=== PATIENT | female | born 1995 | race Caucasian/White ===

== ENCOUNTER 2017-06-19 08:35 | Emergency (ER) | payer MEDICAID ==
[2017-06-19] MEDS: IBUPROFEN 600 MG TAB PO (10:06)
== END 2017-06-19 11:40 | disposition home or self-care (01) ==
LOC: E/R 08:35
DX: S09.8XXA Other specified injuries of head, initial encounter (principal); S01.511A Laceration without foreign body of lip, initial encounter; Y08.89XA Assault by other specified means, initial encounter
CPT/HCPCS: 99283; Z7502

== ENCOUNTER 2017-07-01 20:48 | Emergency (ER) | payer SELFPAY, MEDICAID | END 2017-07-01 22:23 | disposition left against medical advice (07) | LOC: E/R 20:48 | DX: Z53.21 Procedure and treatment not carried out due to patient leaving prior to being seen by health care provider (principal) ==

== ENCOUNTER 2017-12-19 22:30 | Emergency (ER) | payer OTHER, MEDICAID ==
[2017-12-19] MEDS: HYDROCODONE/APAP (5/325) TAB PO (23:47)
[2017-12-19] MEDS: SILVER SULFADIAZINE 1% 25 GM CR TOP (23:47)
== END 2017-12-20 00:28 | disposition home or self-care (01) ==
LOC: FTE 12-20 00:28
DX: T22.211A Burn of second degree of right forearm, initial encounter (principal); X10.0XXA Contact with hot drinks, initial encounter; Y92.89 Other specified places as the place of occurrence of the external cause
CPT/HCPCS: 16020; 99283-25

== ENCOUNTER 2018-07-13 10:54 | Emergency (ER) | payer OTHER, MEDICAID ==
[2018-07-13 12:53] LABS: URINE BLOOD (Dip) POC Negative (NEGATIVE); URINE GLUCOSE (Dip) POC Negative (NEGATIVE); URINE KETONES (Dip) POC Negative (NEGATIVE); URINE LEUKOCYTE EST (Dip) POC 1+ (NEGATIVE); URINE NITRITE (Dip) POC Negative (NEGATIVE); URINE TOTAL PROTEIN POC Negative (NEGATIVE)
[2018-07-13 12:53] LABS: URINE PH (Dip) POC 6.5 (5.0-8.5)
== END 2018-07-13 14:14 | disposition home or self-care (01) ==
LOC: FTE 14:14
DX: N39.0 Urinary tract infection, site not specified (principal)
CPT/HCPCS: 81003; 81025; 87591; 99283